=== PATIENT | female | born 1945 | race Caucasian/White ===

== ENCOUNTER 2017-05-10 15:04 | Emergency (ER) | payer MEDICARE, BC ==
[~2017-05-10 15:04] MED LIST: ATOR20TA15 PO; BEDSIDE COMMODE1 MI1; ENOX40P SQ; GETGO ROLLING W1 MI1; HYDR-3288 PO; LORA-474 PO; LOSA100T PO; METH500T3 PO; POTA75TA PO; SENN1TAB PO
[2017-05-10 15:07] VITALS: BP 170/66; PULSE 83; RESP 20; TEMP 98.8; O2SAT 97
[2017-05-10] MEDS ORDERED: LOSA50TA PO (15:12)
[2017-05-10] MEDS ORDERED: ALEN1TAB48 PO (15:12)
[2017-05-10] MEDS ORDERED: MULTTAB67 PO (15:12)
[2017-05-10] MEDS ORDERED: CALC1TAB87 PO (15:13)
[2017-05-10] MEDS ORDERED: CYAN25005 PO (15:13)
[2017-05-10] MEDS ORDERED: MORPHINE SULFATE 4 MG/ML INJ IV PUSH ONE (15:45)
[2017-05-10] MEDS ORDERED: MORPHINE SULFATE 8 MG/ML INJ IV PUSH ONE (15:45)
[2017-05-10] MEDS ORDERED: ONDANSETRON HCL 4 MG/2 ML VIAL IV PUSH ONE (15:45)
--- NOTE | 2017-05-10 16:18 | RADRPT ---
EXAM DATE/TIME: 05/10/2017 15:48 [place] COMPARISON: No previous studies available for comparison. INDICATIONS : Sudden onset of right hip pain after lifting her grandchild MEDICAL HISTORY : None. SURGICAL HISTORY : Right hip ENCOUNTER: Initial ACUITY: 2 days PAIN SCORE: 9/10 LOCATION: Right hip FINDINGS: No definite fractures, or dislocations are identified. No definite lytic or sclerotic lesion is seen . There are postsurgical changes in the right hip and evidence for old healed intertrochanteric fract ure. CONCLUSION: No definite fracture is seen for technique. Kirby Norris MD on May 10, 2017 at 16:16 Board Certified Radiologist. This report was verified electronically.
--- NOTE | 2017-05-10 16:35 | PD ---
HPI Chief Complaint: Musculoskeletal Complaint Time Seen by Provider: 16:30 Travel History International Travel<30 days: No Contact w/Intl Traveler<30days: No Traveled to known affect area: No History of Present Illness HPI 72-year-old female that presents to the ED for evaluation of right hip pain after bending down. Patient comes here by ambulance for avulsion of this. Patient has a history of previous fracture in the hip. This was done in September. Per patient she was trying to grab one of her grandchildren and she felt a pop and a sharp pain on the right hip. She's not been able to ambulate since. Per patient she was feeling diaphoretic and not well that she called the ambulance. She takes no medications for pain. She does have a history of osteoporosis. She does not know her orthopedic surgeon but per records is Dr. Justice who did the surgery. She has an allergy to aspirin and bufferin. No chest pain or shortness of breath. No head injury. No other injuries reported. Per patient the pain is 8 out of 10. Worse with weightbearing. No numbness, tilling, weakness. PFSH Past Medical History Arthritis: Yes Cardiovascular Problems: Yes (HTN) COPD: Yes Endocrine: No Genitourinary: No Hypertension: Yes Immune Disorder: No Musculoskeletal: Yes (Chronic back pain ) Neurologic: Yes (chronic LBP) Reproductive: No Respiratory: Yes (COPD) Menopausal: Yes Past Surgical History Other Surgery: Yes Social History Alcohol Use: No Tobacco Use: Yes (10/27 PPD) Substance Use: No Allergies-Medications (Allergen,Severity, Reaction): Coded Allergies: Aspirin (Verified Allergy, Intermediate, LIPS BURN AND SWELL, 09/28/16) Uncoded Allergies: BUFFERIN (Allergy, Intermediate, LIPS SWELL, 03/08/16) Reported Meds & Prescriptions Reported Meds & Active Scripts Active Lortab (Hydrocodone-Acetaminophen) 5-325 Mg Tab 1 Tab PO Q6H PRN Wheelchair (Device) 1 Mis Mis 1 Ea .ROUTE DIRECTED [place] (Hydrocodone-Acetaminophen) 7.5-325 mg Tab 1-2 Tab PO Q6H PRN Reported Vitamin B12 (Cyanocobalamin (Vitamin B-12)) 2,500 Mcg Tab.chew 5,000 Mcg PO DAILY Calcium 600 with Vitamin D (Calcium Carbonate-Cholecalciferol) 600-400 mg-Unit Tab 1 Tab PO DAILY Alendronate (Alendronate Sodium) 70 Mg Tab 70 Mg PO Q7D Multiple Vitamin 1 Tab 1 Tab PO DAILY Losartan (Losartan Potassium) 50 Mg Tab 50 Mg PO DAILY Ativan (Lorazepam) 1 Mg Tab 1 Mg PO HS PRN Atorvastatin (Atorvastatin Calcium) 20 Mg Tab 20 Mg PO HS Review of Systems Except as stated in HPI: all other systems reviewed are Neg Physical Exam Narrative GENERAL: SKIN: Warm and dry. HEAD: Atraumatic. Normocephalic. EYES: Pupils equal and round 4 mm reactive to light and accommodation. No scleral icterus. No injection or drainage. ENT: No nasal bleeding or discharge. Mucous membranes pink and moist. Tongue is midline. No uvula deviation. NECK: Trachea midline. No JVD. CARDIOVASCULAR: Regular rate and rhythm. No murmurs, S3, S4. RESPIRATORY: No accessory muscle use. Clear to auscultation. Breath sounds equal bilaterally. GASTROINTESTINAL: Abdomen soft, non-tender, nondistended. Hepatic and splenic margins not palpable. MUSCULOSKELETAL: Extremities without clubbing, cyanosis, or edema. No obvious deformities. Full range of motion of the upper and lower extremities bilaterally. 2+ pulses bilaterally. Patient does have pain with range of motion of the right hip. No obvious bony deformity noted. No obvious shortening of the hip. No lumbar, thoracic, cervical spine tenderness to palpation. 2+ pulses in the lower extremities bilaterally. Neurovascular intact. NEUROLOGICAL: Awake and alert. No obvious cranial nerve deficits. Motor grossly within normal limits. Five out of 5 muscle strength in the arms and legs. Normal speech. PSYCHIATRIC: Appropriate mood and affect; insight and judgment normal. Data Data Last Documented VS Vital Signs Date Time Temp Pulse Resp B/P Pulse Ox O2 Delivery O2 Flow Rate FiO2 05/10/17 15:07 98.8 83 20 170/66 97 Orders Ondansetron Inj (Zofran Inj) (05/10/17 15:45) Morphine Inj (Morphine Inj) (05/10/17 15:45) Hip, Uni(Ap&Lat) W Ap Pelvis (05/10/17 ) MDM Medical Decision Making Medical Screen Exam Complete: Yes Emergency Medical Condition: Yes Medical Record Reviewed: Yes Interpretation(s) Last Impressions Hip and Pelvis X-Ray 05/10/17 0000 Signed Impressions: Service Date/Time: Wednesday, May 10, 2017 15:48 - CONCLUSION: No definite fracture is seen for technique. Kirby Norris MD Differential Diagnosis Fracture versus dislocation versus muscle strain versus muscle spasm versus sciatica Narrative Course 72-year-old female that presents to the ED for ablation right hip pain. Patient was properly examined and was found to have signs and symptoms consistent what he pain. Likely muscle scale. Unclear etiology. Patient does have a history of osteoporosis and previous fracture. X-ray was ordered. X- ray was negative for acute disease. Patient was reassured. After 1 dose of morphine patient able to move the leg more. Patient actually keeps the right hip flexed and extended we no obvious issues. Patient has had no complaints his visit. At this time I think is reasonable to give patient prescription for pain medication. I offered patient a stroller but she prefers to have a perception for a wheelchair. I gave her a prescription for this. Patient was given a prescription for Lortab. Told to follow up with PCP. See ED worsening symptoms. Diagnosis Primary Impression: Injury of hip, right Qualified Code: S79.911A - Injury of hip, right, initial encounter Patient Instructions: General Instructions, Narcotic given in the ED Additional Instructions: Take medications as prescribed. Follow-up with PCP or ortho See ED for any worsening symptoms. Do not drink or drive while taking pain medication. Apply ice or heat as needed for pain Med/Other Pt SpecificInfo: Prescription(s) given Scripts Hydrocodone-Acetaminophen (Lortab)5-325 Mg Tab1 Tab PO Q6H PRN (PAIN) #15 TAB Prov:Jerry Lancaster MD 05/10/17 Wheelchair 1 Mis Mis #1 EA .ROUTE DIRECTED Ref 0 Prov:Jerry Lancaster MD 05/10/17 Disposition: 01 DISCHARGE HOME Condition: Stable Nitish Justice May 10, 2017 16:35
[2017-05-10] MEDS ORDERED: HYDR-3533 PO (16:45)
[2017-05-10] MEDS ORDERED: WHEEMIS3 (16:45)
== END 2017-05-10 17:11 | disposition home or self-care (01) ==
LOC: PHEFT 15:04
DX: S79.911A Unspecified injury of right hip, initial encounter (principal); R61 Generalized hyperhidrosis; I10 Essential (primary) hypertension; F17.200 Nicotine dependence, unspecified, uncomplicated; Z87.39 Personal history of other diseases of the musculoskeletal system and connective tissue; Z86.79 Personal history of other diseases of the circulatory system; Z87.09 Personal history of other diseases of the respiratory system; Z86.69 Personal history of other diseases of the nervous system and sense organs; X58.XXXA Exposure to other specified factors, initial encounter
CPT/HCPCS: 73502; 96374; 96375; 99284; J2270; J2405